=== PATIENT | female | born 1975 | race Caucasian/White ===

== ENCOUNTER 2017-05-05 22:58 | Observation (INO) | payer OTHER ==
--- NOTE | ~2017-05-05 | DS ---
Unit #: [id number] #: [id number] Patient: DK NELSON [id number] [address] [address] [id number] I MR#: [id number] NAME: DK NELSON ROOM: 561 Age: 41 Sex: F Admission Date: 05/06/2017 : 1975 Discharge Date: 05/06/2017 Attending Physician: Cassie Wells M.D. Primary Care Physician: No Primary Care Physician DISCHARGE SUMMARY PRINCIPAL DIAGNOSES 1. Musculoskeletal chest pain. 2. Musculoskeletal thoracic pain. 3. Bacterial vaginosis. 4. Tobaccoism. CONSULTANTS None. PROCEDURES PERFORMED Cardiolite stress test which is currently pending. CLINICAL HISTORY/HOSPITAL COURSE Ms. Nelson is a 41-year-old female who was transferred from the emergency room after presenting with a 1-week history of progressive chest and back pain. Please refer to history and physical for further details. Cardiac workup in the emergency department was unremarkable. However, the patient has a strong family history of coronary artery disease and, thus, was transferred to this facility for a cardiac evaluation. EKG was unremarkable and troponin this morning is negative. She does have tenderness to palpation of the anterior chest and thoracic spine. The pain is exacerbated by movement and is made better with heat. I suspect that this is musculoskeletal in origin. Assuming Cardiolite stress test later today is negative, I think she can be safely discharged home with NSAID therapy. The patient was found to have bacterial vaginosis and this will be treated appropriately. DISCHARGE CONDITION Stable. DISPOSITION Discharge to home. DISCHARGE MEDICATIONS 1. Ibuprofen 800 mg 1 p.o. t.i.d. p.r.n. pain, number given 20. 2. Flagyl 500 mg p.o. t.i.d. for another 6 days. DISCHARGE INSTRUCTIONS 1. The patient is instructed to refrain from any further tobacco use. 2. She can increase her activity as tolerated. 3. Follow a heart healthy diet. FOLLOWUP The patient will follow up with her primary care physician in one week. Unit #: [id number] #: [id number] Patient: DK NELSON Dictated by... Cassie Wells M.D. CLARISA/gilberto TD: 05/08/2017 08:58 JOB #: [id number] DISCHARGE SUMMARY Page 1 of 1 X Cassie Wells MD X DISCHARGE SUMMARY
--- NOTE | ~2017-05-05 | EKG ---
PATIENT: DK NELSON UNIT #: [id number] Ventricular Rate: 60 BPM Atrial Rate: 60 BPM P-R Interval: 100 ms QRS Duration: 96 ms Q-T Interval: 444 ms QTC Calculation(Bezet): 444 ms P Bigfoot: -62 degrees Calculated R Bigfoot: 77 degrees Calculated T Bigfoot: 62 degrees Diagnosis Line: Unusual P axis, possible ectopic atrial rhythm Diagnosis Line: Nonspecific ST abnormality Diagnosis Line: Abnormal ECG Diagnosis Line: No previous ECGs available Diagnosis Line: Confirmed by TUSHAR BAZAN MD ([id number]) on Diagnosis Line: 05/07/2017 10:50:52 AM INTERPRETING MD: BLAIRE
--- NOTE | ~2017-05-05 | ST ---
Unit #: [id number] #: [id number] Patient: DK NELSON [id number] [address] [address] [id number] I MR#: [id number] NAME: DK NELSON : 1975 SEX: F STUDY DATE/TIME: 05/06/2017 UNIT: C5B ROOM: [facility] STUDY DESCRIPTION: Attending Physician: Cassie Wells M.D. Primary Care Physician: No Primary Care Physician CARDIOLOGY REPORT EXAM Exercise Cardiolite stress test. FINDINGS Baseline EKG shows sinus bradycardia with a rate of 56 beats per minute, otherwise normal. PROCEDURE The patient exercised on a treadmill using Erasto protocol for 10 minutes, achieving a workload of 10.6 METs. Next, 87% of the maximum age predicted heart rate was reached at 157 beats per minute with a maximum blood pressure response of 180/84 mmHg. The patient had no complaints of chest pain, palpitations, or dizziness. EKG during exercise showed [address] depression in the inferior leads as well as V5 through V6. This resolved in the recovery phase. It was noted for an occasional premature ventricular complex. The test was terminated secondary to achieving target heart rate. IMPRESSION 1. Excellent exercise tolerance with a workload of 10 METs. 2. Eighty seven percent of the maximal age predicted heart rate was reached at 157 beats per minute with a hypertensive blood pressure response. 3. The patient had no complaints of chest pain, palpitations, or dizziness. 4. EKG during the exercise showed a [address] depression in V4 through V6 in inferior leads. This resolved in recovery phase. It was noted for occasional premature ventricular complex. 5. Cardiolite was injected at peak exercise with radionuclide tests pending. Please correlate these results with nuclear images. Dictated by... Bashir Hays A.P.R.N. for Adriana Frankel/bridgette TD: 05/06/2017 16:27 JOB #: [id number] Unit #: [id number] #: [id number] Patient: DK NELSON CARDIOLOGY REPORT Page 1 of 1 X Bashir Hays APRN CARDIOLOGY REPORT
--- NOTE | ~2017-05-05 | HP ---
Unit #: [id number] #: [id number] Patient: DK NELSON [id number] [address] [address] [id number] I MR#: [id number] NAME: DK NELSON ROOM: 561 Age: 41 Sex: F Admission Date: 05/06/2017 : 1975 Attending Physician: Bernadette Schwab M.D. Primary Care Physician: No Primary Care Physician HISTORY AND PHYSICAL CHIEF COMPLAINT Atypical back and chest pain. HISTORY OF PRESENT ILLNESS This pleasant, 41-year-old, healthy female was transferred from [facility] emergency department for atypical back and chest pain. The patient was lifting a heavy object one and a half weeks ago. The patient began to experience increasing back pain along the spine of the C-spine, thoracic spine, which radiated to her right scapula and then began to radiate to her chest really without associated symptoms. The pain is worse when lying supine, turning to her side in bed and attempting to talk on her phone without using her hands but shrugging her shoulders. Cardiac workup was negative [facility]. She was sent to this facility for a stress test given that she has a very positive family history of premature coronary artery disease. She denies chest or back pain with ambulation. She was given aspirin, was given 500 mg of Flagyl after being diagnosed with bacterial vaginosis. PAST MEDICAL HISTORY x2. SOCIAL HISTORY The patient lives with her boyfriend and three children. She has been smoking one pack per day of tobacco for about 30 years. She drinks occasional alcohol. FAMILY HISTORY Premature coronary artery disease. ALLERGIES Septra. HOME MEDICATIONS None. REVIEW OF SYSTEMS , back and chest pain, tobacco use. All other systems were reviewed and otherwise negative. PHYSICAL EXAMINATION GENERAL APPEARANCE: A pleasant, young appearing, 41-year-old female currently in no acute distress. Unit #: [id number] #: [id number] Patient: DK NELSON VITAL SIGNS: Temperature 98.6. Pulse 68. Respirations 18. Blood pressure 116/68. HEENT: The patient denies PERRLA. Extraoculars are intact. Pharynx is benign. NECK: Supple without adenopathy or thyromegaly. There is mild tenderness to percussion over the C-spine and thoracic spine. The patient has excellent range of motion, however, of her neck. CHEST: Clear. CARDIAC: Normal S1, S1 without S3, S4 or murmur. No chest wall tenderness to palpation. ABDOMEN: Bowel sounds are present. No hepatosplenomegaly, tenderness or masses. EXTREMITIES: Without clubbing, cyanosis or edema. Pedal pulses are present. Negative Latisha sign. NEUROLOGIC: The patient is awake, alert, oriented. Cranial nerves are intact. Equal strength throughout. DIAGNOSTIC STUDIES LABORATORY: Hematocrit 39.8, normal white count and platelet count. SMA-12: Potassium 3.3. Urine tox screen positive for marijuana. Urinalysis without significant white or red cells, 1+ bacteria. Bacterial vaginosis positive. Negative yeast. Negative Trichomonas. Cardiac markers are negative. Beta hCG is negative. Coags are normal. IMAGING: Chest x-ray: No acute disease. CARDIOVASCULAR: EKG: Sinus rhythm, rate 64, normal appearing except for a somewhat shortened VT interval. ASSESSMENT 1. Atypical back and chest pain which sounds to be musculoskeletal. 2. Bacteria vaginosis. 3. Tobacco use. PLAN 1. Aspirin. 2. K-Pad, baclofen and ibuprofen. 3. Stress test in the morning if repeat EKG and cardiac enzymes are negative. 4. Flagyl 500 mg b.i.d. for six more days. Dictated by Bernadette Schwab M.D. AML/bd TD: 05/06/2017 06:07 JOB #: [id number] Unit #: [id number] #: [id number] Patient: DK NELSON HISTORY AND PHYSICAL Page 1 of 1 X Bernadette Schwab MD HISTORY AND PHYSICAL
--- NOTE | ~2017-05-05 | TH ---
Unit #: [id number] #: [id number] Patient: DK NELSON [id number] [address] [address] [id number] I MR#: [id number] NAME: DK NELSON : 1975 SEX: F STUDY DATE/TIME: 05/06/2017 UNIT: C5B ROOM: [facility] STUDY DESCRIPTION: Imaging Study Attending Physician: Cassie Wells M.D. Primary Care Physician: No Primary Care Physician CARDIOLOGY REPORT EXAM Nuclear study SUMMARY This 41-year-old patient was exercised on a treadmill and at the peak of the exercise, the patient was injected with 32.6 mCi of technetium-99m Cardiolite and images were obtained according to a standard SPECT protocol. For rest images 10.98 mCi of Cardiolite were injected. Images were reviewed in both phases. FINDINGS Overall study quality is excellent. LV cavity size is normal in both images. There is no lung activity. RV is normal. Rotating raw data showed no significant artifact, soft tissue attenuation or GI uptake. Review of SPECT images showed a normal homogeneous radiotracer concentration throughout the myocardium in both the stress and rest images. Gated images showed a normal LV wall thickening and wall motion with an estimated LV ejection fraction of 54%. IMPRESSION 1. Myocardial perfusion imaging is normal. 2. No evidence of ischemia or infarct. 3. Normal left ventricular dimensions. 4. Normal systolic left ventricular function with an estimated left ventricular ejection fraction of 54%. Dictated by... Adriana Rodríguez/tatiana TD: 05/06/2017 21:43 JOB #: [id number] Unit #: [id number] #: [id number] Patient: DK NELSON CARDIOLOGY REPORT Page 1 of 1 X Glen Paris MD CARDIOLOGY REPORT
[2017-05-06] MEDS ORDERED: ASPIRIN1 GM PO (03:07)
[2017-05-06] MEDS ORDERED: ADVIL100 MG PO (03:08)
[2017-05-06] MEDS ORDERED: ASPIRIN1 GM (03:08)
[2017-05-06 08:32] LABS: HEMATOCRIT 41.2 % (35.0-45.0); HEMOGLOBIN 13.3 gm/dL (12.0-16.0); MEAN CELL VOLUME 93.9 FL (83-96); MEAN CORPUSCULAR HEMOGLOBIN 30.4 PG (28-34); MEAN CORPUSCULAR HGB CONC 32.3 g/dL (30-36); MEAN PLATELET VOLUME 9.2 FL (6.5-11.5); RED BLOOD COUNT 4.39 X10e (3.90-5.30); RED CELL DISTRIBUTION WIDTH 12.8 % (11.0-15.5); WHITE BLOOD COUNT 6.4 X10e3 (4.0-10.5)
[2017-05-06 09:01] LABS: BUN/CREATININE RATIO 18.33; CALCIUM SERUM 8.6 mg/dL (8.4-10.2); CREATININE SERUM 0.6 mg/dL (0.6-1.4); GLOM FILT RATE Estimated 113.2 mL/min (>60); POTASSIUM 3.6 mmol/L (3.5-5.1)
[2017-05-06] MEDS ORDERED: FLAGYL PO (11:24)
[2017-05-06] MEDS ORDERED: IBUPROFEN800 MG PO (11:25)
== END 2017-05-06 16:23 | disposition home or self-care (01) ==
LOC: C5B 05-06 01:40
PROVIDERS: Internal Medicine
DX: R07.89 Other chest pain (principal); M54.6 Pain in thoracic spine; N76.0 Acute vaginitis; I49.3 Ventricular premature depolarization; F17.200 Nicotine dependence, unspecified, uncomplicated; Z82.49 Family history of ischemic heart disease and other diseases of the circulatory system; Z88.1 Allergy status to other antibiotic agents; Z98.890 Other specified postprocedural states
CPT/HCPCS: 78452; 80048; 82550; 84484; 85027; 93005; 93017; A9500; G0378; J2785